=== PATIENT | male | born 1950 | race Caucasian/White ===

== ENCOUNTER → 2020-08-18 07:37 | Outpatient (CLI) | payer OTHER, SELFPAY ==
--- NOTE | ~2020-08-18 | MR_ITS ---
EXAMINATION: MR brain/brain stem wo con DATE: 08/18/2020 08:23 INDICATION: Memory loss. TECHNIQUE: Magnetic resonance imaging (MRI) of the brain and brainstem was performed without intraven ous contrast. Sequences included sagittal and axial T1-weighted FSE, axial diffusion-weighted FS EPI, axial T2*-weighted GRE, axial T2-weighted FLAIR Propeller, and axial T2-weighted Propeller. Apparent diffusion coefficient (ADC) maps were created. COMPARISON: None. FINDINGS: There are scattered areas of nonspecific increased T2-weighted signal intensity in the cere bral white matter, which is within normal limits for the patient's age. There is no intracranial hemo rrhage, acute infarction, or abnormal intracranial mass lesion. The ventricles are normal in size. Ca vum septum pellucidum and vergae are noted. The orbits are normal. There is mild mucosal thickening i n the ethmoid sinuses. There is complete opacification of right maxillary sinus, which is small. Ther e is a trace right mastoid effusion. IMPRESSION: 1. Normal aging brain. 2. Silent sinus syndrome involving right maxillary sinus. Reviewed, dictated and finalized at location A. SPERSON
== END ==
PROVIDERS: Visit Provider Family Medicine
DX: R41.3 Other amnesia (principal)
CPT/HCPCS: 70551